=== PATIENT | female | born 1965 | race Caucasian/White ===

== ENCOUNTER → 2017-03-20 | Outpatient (CLI) | payer BC ==
--- NOTE | 2017-03-30 15:31 | MAMMOGRAPHY REPORT ---
BILATERAL DIGITAL SCREENING MAMMOGRAM TOMOSYNTHESIS WITH CAD: 03/20/2017 CLINICAL HISTORY: Routine screening. Patient has no complaints. TECHNIQUE: Breast tomosynthesis in addition to standard 2D mammography was performed. Current study was also evaluated with a Computer Aided Detection (CAD) system. COMPARISON: No prior exams were available for comparison. BREAST COMPOSITION: The tissue of both breasts is extremely dense, which lowers the sensitivity of m ammography. FINDINGS: There is a possible small cluster of calcifications in the left upper outer quadrant middl e depth. Additionally, there is a nodular 6 mm asymmetry seen within the left lateral breast on the c c view as well as an 8 mm asymmetry seen within the right slightly superior breast on the MLO view. Recommend comparison with prior outside mammograms for further evaluation. If prior outside mammogra ms cannot be obtained in a timely manner, then recommend additional imaging evaluation with spot comp ression tomosynthesis views, spot magnification views, and possible breast ultrasound. The remainder of both breasts demonstrate no suspicious masses, calcifications, or areas of architectural distorti on. IMPRESSION: ACR BI-RADS CATEGORY 0: INCOMPLETE EVALUATION: NEED ADDITIONAL IMAGING EVALUATION Left breast calcifications and bilateral breast asymmetries, for which comparison with prior outside mammograms is recommended for further evaluation. If the prior outside mammograms cannot be obtained in a timely manner, then the patient will need to return for additional imaging. An addendum will b e made if/when prior mammograms are obtained. Approximately 10% of breast cancers are not detected with mammography. A negative mammographic report should not delay biopsy if a clinically suggestive mass is present. Evette Bell M.D. ah/:03/30/2017 13:53:24 Arboriculturist: Amarilys SOTO(Tatyana)(Rom)(BD), [facility] letter sent: Need Priors 0 BI-RADS Code: ACR BI-RADS Category 0: Incomplete Evaluation: Need Additional Imaging Evaluation
== END | disposition home or self-care (01) ==
LOC: C.MAMM 13:27
PROVIDERS: ATTEND Family Medicine
DX: Z12.31 Encounter for screening mammogram for malignant neoplasm of breast (principal); R92.1 Mammographic calcification found on diagnostic imaging of breast; R92.8 Other abnormal and inconclusive findings on diagnostic imaging of breast

== ENCOUNTER → 2017-06-15 | Outpatient (CLI) | payer BC ==
--- NOTE | 2017-06-15 15:38 | MAMMOGRAPHY REPORT ---
BILATERAL DIGITAL DIAGNOSTIC MAMMOGRAM TOMOSYNTHESIS AND TARGETED BILATERAL ULTRASOUND: 06/15/2017 CLINICAL HISTORY: Callback from screening mammogram for bilateral asymmetries and left breast calcifi cations. Family history of breast cancer in her mother. TECHNIQUE: Breast tomosynthesis in addition to standard 2D mammography was performed. Spot magnific ation left CC and ML views and spot compression left CC and right MLO 2-D and tomosynthesis images we re obtained. COMPARISON: Comparison is made to exam dated: 03/20/2017 mammogram - [facility]. The prior outside mammograms from 2013 and 2012 could not be loaded into the PACS and therefore could not be viewed on the workstation. BREAST COMPOSITION: The tissue of both breasts is extremely dense, which lowers the sensitivity of m ammography. FINDINGS: The previously described asymmetries seen within the left lateral breast on the cc view and right breast along the posterior nipple line on the MLO view efface on the additional spot compressi on views, and have the appearance of normal fibroglandular tissue on the additional images. No suspi cious mass or architectural distortion is noted in these regions on the additional views. Spot magni fication views of the left breast demonstrate a 5 mm group of punctate and amorphous calcifications i n the left superior breast at approximately 12:30. The calcifications are indeterminate and stereota ctic biopsy is recommended for further evaluation. Targeted ultrasound was performed of the left lateral breast in the region of the mammographic asymme try. In the left breast at 3:00, 4 cm from the nipple, there is an oval circumscribed hypoechoic 4 x 3 mm mass which is probably benign and could represent a complicated cyst versus a benign solid mass such as a fibroadenoma. Targeted ultrasound was performed of the right breast at 3:00, 9:00, and subareolar region in the reg ion of the mammographic asymmetry seen on one view only. In the right breast at 9:00, 2 cm from the nipple, there is a circumscribed anechoic 15 x 4 x 9 mm mass, which is predominately anechoic and con tains a few thin internal septations. The mass is probably benign and likely represents a cyst clust er. No suspicious masses were evident. IMPRESSION: ACR BI-RADS CATEGORY 4: SUSPICIOUS, TARGETED ULTRASOUND ACR BI-RADS CATEGORY 4: SUSPICIO US 1. Grouped calcifications in the left 12:30 breast are indeterminate and stereotactic biopsy is radha mmended for further evaluation. 2. Bilateral breast asymmetries efface on the additional views and are benign and felt to represent normal fibroglandular tissue. 3. Incidentally seen on ultrasound are a circumscribed benign-appearing 4 mm mass in the left 3:00 b reast and a 15 mm probable cyst cluster in the right 9:00 breast. Pending benign pathology results o f the left breast biopsy, recommend follow-up diagnostic tomosynthesis mammograms and targeted ultras ound in 6 months to confirm stability. A phone call was made to the physician's office to confirm faxed results were received. The patient has been verbally notified of the results. She tentatively scheduled the biopsy before leaving the [facility]. Approximately 10% of breast cancers are not detected with mammography. A negative mammographic report should not delay biopsy if a clinically suggestive mass is present. Evette Bell M.D. ah/:06/15/2017 11:52:55 Stretcher Leveler Operator Helper: Keisha FELDMAN)(Rom), [facility] letter sent: Abnormal 4/5 BI-RADS Code: ACR BI-RADS Category 4: Suspicious Ultrasound BI-RADS: ACR BI-RADS Category 4: Suspici ous
== END | disposition home or self-care (01) ==
LOC: C.MAMM 08:32
PROVIDERS: ATTEND Family Medicine
DX: R92.0 Mammographic microcalcification found on diagnostic imaging of breast (principal); N64.89 Other specified disorders of breast

== ENCOUNTER → 2017-06-29 | Outpatient (CLI) | payer BC ==
--- NOTE | 2017-06-29 08:30 | Discharge Instructions ---
Discharge Instructions Procedure Procedure Date: Jun 29, 2017. Reason for visit: Left Calcs. Discharge Discharge Date: Jun 29, 2017. Discharge Diagnosis: status post breast biopsy Instructions Activity Recommendations: Additional Limitations (see below) Return to School/Work: no limitations Recommended Home Diet: No Limitations Provider Instructions: ACTIVITY RECOMMENDATIONS: * No lifting, pushing, pulling or exercising the affected side for three days. RETURN TO SCHOOL/WORK: * You may return to work/school after the procedure, but do not perform any strenuous activities for 24 to 48 hours. MEDICATIONS: * Tylenol (two 325 mg) every four to six hours if needed for mild pain (if not allergic to Tylenol). DIET: * Resume previous diet. SPECIAL CARE INSTRUCTIONS: * Keep biopsy site dry for 24 hours. May shower after 24 hours, but do not soak (bathe) incision. * May remove Tegaderm (plastic patch) tomorrow AFTER showering. * Leave the steri-strips on for one week. Allow the steri-strips to fall off by themselves. If not off after one week, you may remove them. You may place a Bandaid crosswise over the strips, if desired. * Apply ice 10 minutes on and 10 minutes off as needed. * Wear a bra at bedtime to sleep more comfortably for 2-3 days. * Your referring physician should have the results after approximately 5 to 7 business days. * Call for unusual bleeding, fever, drainage, etc or if you have any questions call during normal business hours or after hours call Dr Bell, [phone]. FOLLOW UP VISIT: Follow-up with Referring Physician as scheduled. Amanda Trany Recommendations: Call your doctor if: * Temperature above 101 degrees * Pain not relieved by pain medicine ordered * There is increased drainage or redness from any incision * You have any unanswered questions or concerns. Your Doctors Instructions noted above were prepared by provider Evette Bell. Patient Signature Section: Patient Instructions Signature Page Chelsye Myers Patient (or Guardian) Signature/Date: I have read and understand the instructions given to me by my caregivers. Caregiver/RN/Doctor Signature/Date: The above-named patient and/or guardian has received patient instructions on this date. + Original Patient Signature Page (only) stays with chart. Please make copy for patient.
--- NOTE | 2017-06-29 13:53 | MAMMOGRAPHY REPORT ---
UNILATERAL LEFT DIGITAL DIAGNOSTIC MAMMOGRAM: 06/29/2017 CLINICAL HISTORY: Status post left breast stereotactic biopsy. TECHNIQUE: Postprocedural left CC and ML views were obtained. COMPARISON: Comparison is made to exams dated: 06/15/2017 ultrasound, 06/15/2017 mammogram, and 03/20 mammogram - [facility]. BREAST COMPOSITION: The tissue of the left breast is extremely dense, which lowers the sensitivity o f mammography. FINDINGS: A new biopsy marker clip is seen within the left breast at the site of the biopsied calcif ications in the left 12:30 breast. No significant postbiopsy hematoma is seen. IMPRESSION: POST PROCEDURE IMAGING FOR MARKER PLACEMENT New biopsy marker clip status post left breast stereotactic biopsy. Pathology results are pending. Approximately 10% of breast cancers are not detected with mammography. A negative mammographic report should not delay biopsy if a clinically suggestive mass is present. Evette Bell M.D. ah/:06/29/2017 08:44:04 Clinical Dermatologist: Elaine Godwin RT(R)(M), [facility] BI-RADS Code: Post Procedure Imaging For Marker Placement
--- NOTE | 2017-06-29 13:53 | MAMMOGRAPHY REPORT ---
STEREOTACTIC GUIDED BIOPSY LEFT BREAST: 06/29/2017 CLINICAL HISTORY: Indeterminate calcifications in the left 12:30 breast. PATIENT CONSENT: The procedure, risks, benefits, and alternatives of stereotactic biopsy with clip pl acement were discussed with the patient, and verbal and written consent was obtained. A timeout was performed immediately prior to the procedure. PROCEDURE DESCRIPTION: With stereotactic guidance, aseptic technique, and lidocaine as a local anesth etic (1% lidocaine to anesthetize the skin and 1% lidocaine with epinephrine to anesthetize the deepe r tissues), the calcifications of concern in the left 12:30 breast were sampled multiple times with a 9-gauge vacuum-assisted biopsy needle (Marcandi). The path of approach was craniocaudal. The sp ecimen radiograph demonstrates calcifications to be present in the samples. A metallic marker clip w as placed at the biopsy site. This was confirmed on postprocedure mammograms. Direct pressure was a pplied at the biopsy site and hemostasis was readily achieved. The patient tolerated the procedure w ithout complication. She was given wound care instructions. COMPARISON: Comparison is made to exams dated: 06/15/2017 ultrasound, 06/15/2017 mammogram, and 03/20 mammogram - [facility]. IMPRESSION: STEREOTACTIC GUIDED BIOPSY Stereotactic biopsy of indeterminate calcifications in the left 12:30 breast, with clip placement. T he patient will receive pathology results from her referring provider. Pending benign pathology resu lts, recommend follow-up bilateral diagnostic tomosynthesis mammograms and ultrasound in 6 months to reevaluate benign-appearing breast masses. Evette Bell M.D. ah/:06/29/2017 08:31:57 Attending Technologist: Caitlin Patel RT(R)(M), [facility] Presser Hand: Elaine Godwin RT(R)(M), [facility]
== END | disposition home or self-care (01) ==
LOC: C.MAMM 07:51
PROVIDERS: ATTEND Family Medicine
DX: R92.1 Mammographic calcification found on diagnostic imaging of breast (principal)